=== PATIENT | male | born 1980 | race Hispanic/Latino ===

== ENCOUNTER → 2020-10-26 | Day surgery (SDC) | payer BC ==
[~2020-10-26] MED LIST: BENEFIBER1 EAC1; LIDOCAINE HCL 2% LOCAL INJ 5 ML SDV VIAL INJ ONE; OMEPRAZOLE40 MG PO; POLYETHYLENE G454 GM; PROPOFOL IV EMULSION 10 MG/ML 20 ML VIAL ONE
[2020-10-26 13:40] VITALS: BP 124/85
== END | disposition home or self-care (01) ==
LOC: OR 09:30
PROVIDERS: ATTEND Internal Medicine Gastroenterology
DX: Z09 Encounter for follow-up examination after completed treatment for conditions other than malignant neoplasm (principal); D12.4 Benign neoplasm of descending colon; K31.7 Polyp of stomach and duodenum; K29.70 Gastritis, unspecified, without bleeding; K21.00 Gastro-esophageal reflux disease with esophagitis, without bleeding; K57.30 Diverticulosis of large intestine without perforation or abscess without bleeding; K64.8 Other hemorrhoids; K76.0 Fatty (change of) liver, not elsewhere classified; R03.0 Elevated blood-pressure reading, without diagnosis of hypertension; E66.01 Morbid (severe) obesity due to excess calories; Z01.810 Encounter for preprocedural cardiovascular examination; Z01.812 Encounter for preprocedural laboratory examination; Z20.822 Contact with and (suspected) exposure to COVID-19; Z68.43 Body mass index [BMI] 50.0-59.9, adult
CPT/HCPCS: 43239; 45385; 93005; J2001; J2704; U0002